=== PATIENT | female | born 1975 | race Caucasian/White ===

== ENCOUNTER 2017-06-12 09:46 | Observation (INO) | payer BC ==
[~2017-06-12] VITALS: Ht 170.2 cm; Wt 100.0 kg
[2017-06-12 09:48] VITALS: BP 159/77; PULSE 65; RESP 14; TEMP 98.4; O2SAT 100
[2017-06-12] MEDS ORDERED: SODIUM CHLOR 0.9% 1000 ML INJ 1,000 ML IV SCH (10:37)
--- NOTE | 2017-06-12 10:44 | PD ---
HPI Chief Complaint: Abdominal Pain Time Seen by Provider: 10:28 Travel History International Travel<30 days: No Contact w/Intl Traveler<30days: No Traveled to known affect area: No History of Present Illness HPI The patient is a 42-year-old female who presents emergency department for right upper quadrant abdominal pain with nausea and vomiting. The patient has symptoms for 2 days, does note the pain initially was epigastric, now is right upper quadrant, radiates to the right upper flank, is associated with nausea and vomiting. The pain improved, she ate seafood last night and the pain returned. She denies any diarrhea or lower abdominal pain. She does have a history of previous surgery for uterine fibroid, denies any history of choledocholithiasis, cholelithiasis, or symptomatic gallstones. She denies any dysuria, frequency, or urgency. She is currently on her menstrual cycle. She is visiting, from [place], for the [place] with family. PFS Past Medical History Narrative Medical Hyperlipidemia, nephrolithiasis High Cholesterol: Yes Genitourinary: Yes (kidney stone-lithrotripsy/stent ) Reproductive: Yes (fibroid surgery) ?: Not LMP: 06/10/17 Past Surgical History Narrative Surgical Fibroid surgery, previous kidney stent for kidney stone Social History Alcohol Use: No Tobacco Use: No Substance Use: No Allergies-Medications (Allergen,Severity, Reaction): Coded Allergies: Penicillins (Verified Adverse Reaction, Severe, 06/12/17) Reported Meds & Prescriptions Reported Meds & Active Scripts Active No Active Prescriptions or Reported Medications Review of Systems Except as stated in HPI: all other systems reviewed are Neg General / Constitutional: No: Fever Cardiovascular: No: Chest Pain or Discomfort Respiratory: No: Shortness of Breath Gastrointestinal: Positive: Nausea, Vomiting, Abdominal Pain, No: Diarrhea Genitourinary: Positive: Vaginal Bleeding (currently on her menstrual cycle), No: Dysuria, Hematuria Skin: No Rash Physical Exam Narrative GENERAL: Awake, alert, pleasant 42-year-old female who appears her stated age and is in no acute respiratory distress. SKIN: Focused skin assessment warm/dry. HEAD: Atraumatic. Normocephalic. EYES: No injection or drainage. ENT: No nasal bleeding or discharge. Mucous membranes pink and moist. NECK: Trachea midline. No JVD. CARDIOVASCULAR: Regular rate and rhythm. No murmur appreciated. RESPIRATORY: No accessory muscle use. Clear to auscultation. Breath sounds equal bilaterally. GASTROINTESTINAL: Abdomen soft, tenderness right upper quadrant. No guarding or rigidity. Back: No CVA tenderness. MUSCULOSKELETAL: No obvious deformities. No clubbing. No cyanosis. No edema. NEUROLOGICAL: Awake and alert. No obvious cranial nerve deficits. Motor grossly within normal limits. Normal speech. PSYCHIATRIC: Appropriate mood and affect; insight and judgment normal. Data Data Last Documented VS Vital Signs Date Time Temp Pulse Resp B/P (MAP) Pulse Ox O2 Delivery O2 Flow Rate FiO2 06/12/17 10:59 64 20 100 Room Air 06/12/17 09:48 98.4 Orders Orders Complete Blood Count With Diff (06/12/17 10:37) Comprehensive Metabolic Panel (06/12/17 10:37) Lipase (06/12/17 10:37) Urinalysis - C+S If Indicated (06/12/17 10:37) Us Abdomen Gallbladder (06/12/17 ) Iv Access Insert/Monitor (06/12/17 10:37) Ecg Monitoring (06/12/17 10:37) Oximetry (06/12/17 10:37) Morphine Inj (Morphine Inj) (06/12/17 10:45) Ondansetron Inj (Zofran Inj) (06/12/17 10:45) Sodium Chlor 0.9% 1000 Ml Inj (Ns 1000 M (06/12/17 10:37) Sodium Chloride 0.9% Flush (Ns Flush) (06/12/17 10:45) Ketorolac Inj (Toradol Inj) (06/12/17 10:45) Admit Order (Ed Use Only) (06/12/17 12:34) Ciprofloxacin 400 Mg Premix (Cipro 400 M (06/12/17 12:45) Metronidazole 500 Mg Inj (Flagyl 500 Mg (06/12/17 12:45) Ns + Kcl 20 Meq Inj (Ns + Kcl 20 Meq Inj (06/12/17 12:45) Labs Laboratory Tests Test 06/12/17 10:50 White Blood Count 16.5 TH/MM3 Red Blood Count 4.84 MIL/MM3 Hemoglobin 13.2 GM/DL Hematocrit 39.2 % Mean Corpuscular Volume 80.9 FL Mean Corpuscular Hemoglobin 27.2 PG Mean Corpuscular Hemoglobin Concent 33.6 % Red Cell Distribution Width 14.2 % Platelet Count 290 TH/MM3 Mean Platelet Volume 9.0 FL Neutrophils (%) (Auto) 89.9 % Lymphocytes (%) (Auto) 6.5 % Monocytes (%) (Auto) 3.2 % Eosinophils (%) (Auto) 0.0 % Basophils (%) (Auto) 0.4 % Neutrophils # (Auto) 14.8 TH/MM3 Lymphocytes # (Auto) 1.1 TH/MM3 Monocytes # (Auto) 0.5 TH/MM3 Eosinophils # (Auto) 0.0 TH/MM3 Basophils # (Auto) 0.1 TH/MM3 CBC Comment DIFF FINAL Differential Comment Urine Color YELLOW Urine Turbidity CLEAR Urine pH 6.5 Urine Specific [place] 1.030 Urine Protein TRACE mg/dL Urine Glucose (UA) NEG mg/dL Urine Ketones NEG mg/dL Urine Occult Blood NEG Urine Nitrite NEG Urine Bilirubin NEG Urine Urobilinogen LESS THAN 2.0 MG/DL Urine Leukocyte Esterase NEG Urine RBC LESS THAN 1 /hpf Urine WBC 1 /hpf Urine Squamous Epithelial Cells 1 /hpf Microscopic Urinalysis Comment CULT NOT INDICATED Blood Urea Nitrogen 9 MG/DL Creatinine 0.87 MG/DL Random Glucose 122 MG/DL Total Protein 7.9 GM/DL Albumin 3.6 GM/DL Calcium Level 8.8 MG/DL Alkaline Phosphatase 73 U/L Aspartate Amino Transf (AST/SGOT) 12 U/L Alanine Aminotransferase (ALT/SGPT) 17 U/L Total Bilirubin 0.3 MG/DL Sodium Level 132 MEQ/L Potassium Level 3.7 MEQ/L Chloride Level 100 MEQ/L Carbon Dioxide Level 22.0 MEQ/L Anion Gap 10 MEQ/L Estimat Glomerular Filtration Rate 71 ML/MIN Lipase 122 U/L [facility] Medical Decision Making Medical Screen Exam Complete: Yes Emergency Medical Condition: Yes Medical Record Reviewed: Yes Interpretation(s) Laboratory Tests Test 06/12/17 10:50 White Blood Count 16.5 TH/MM3 Red Blood Count 4.84 MIL/MM3 Hemoglobin 13.2 GM/DL Hematocrit 39.2 % Mean Corpuscular Volume 80.9 FL Mean Corpuscular Hemoglobin 27.2 PG Mean Corpuscular Hemoglobin Concent 33.6 % Red Cell Distribution Width 14.2 % Platelet Count 290 TH/MM3 Mean Platelet Volume 9.0 FL Neutrophils (%) (Auto) 89.9 % Lymphocytes (%) (Auto) 6.5 % Monocytes (%) (Auto) 3.2 % Eosinophils (%) (Auto) 0.0 % Basophils (%) (Auto) 0.4 % Neutrophils # (Auto) 14.8 TH/MM3 Lymphocytes # (Auto) 1.1 TH/MM3 Monocytes # (Auto) 0.5 TH/MM3 Eosinophils # (Auto) 0.0 TH/MM3 Basophils # (Auto) 0.1 TH/MM3 CBC Comment DIFF FINAL Differential Comment Urine Color YELLOW Urine Turbidity CLEAR Urine pH 6.5 Urine Specific [place] 1.030 Urine Protein TRACE mg/dL Urine Glucose (UA) NEG mg/dL Urine Ketones NEG mg/dL Urine Occult Blood NEG Urine Nitrite NEG Urine Bilirubin NEG Urine Urobilinogen LESS THAN 2.0 MG/DL Urine Leukocyte Esterase NEG Urine RBC LESS THAN 1 /hpf Urine WBC 1 /hpf Urine Squamous Epithelial Cells 1 /hpf Microscopic Urinalysis Comment CULT NOT INDICATED Blood Urea Nitrogen 9 MG/DL Creatinine 0.87 MG/DL Random Glucose 122 MG/DL Total Protein 7.9 GM/DL Albumin 3.6 GM/DL Calcium Level 8.8 MG/DL Alkaline Phosphatase 73 U/L Aspartate Amino Transf (AST/SGOT) 12 U/L Alanine Aminotransferase (ALT/SGPT) 17 U/L Total Bilirubin 0.3 MG/DL Sodium Level 132 MEQ/L Potassium Level 3.7 MEQ/L Chloride Level 100 MEQ/L Carbon Dioxide Level 22.0 MEQ/L Anion Gap 10 MEQ/L Estimat Glomerular Filtration Rate 71 ML/MIN Lipase 122 U/L Differential Diagnosis Differential diagnosis includes cholecystitis, choledocholithiasis, biliary colic, nephrolithiasis, hydronephrosis, peptic ulcer disease, pancreatitis, gastritis. Narrative Course IV was established, labs are drawn and sent, and the patient was placed on cardiac telemetry monitoring and continuous pulse oximetry monitoring. The patient was administered morphine, Toradol, Zofran, and IV fluids. Ultrasound of the right upper quadrant was ordered. White count is elevated, ultrasound is positive for large gallstone in the gallbladder neck with mild gallbladder wall thickening. I discussed the patient with the on-call surgeon, Dr. Wagner, who evaluated the patient in the emergency department. After evaluation, as agreed the patient would be a 23 hour observation to same-day care for cystectomy. The patient is comfortable with this plan of care. Physician Communication Physician Communication I discussed the patient with Dr. Wagner who agrees with 23 hour observation to same-day care. Diagnosis Primary Impression: Acute cholecystitis Admitting Information Admitting Physician Requests: Observation Scripts No Active Prescriptions or Reported Meds Condition: Stable Valdo Piper MD Jun 12, 2017 10:44
[2017-06-12] MEDS ORDERED: SODIUM CHLORIDE 0.9% FLUSH 10 ML FLUSH IV FLUSH PRN ×2 (10:45→15:30)
[2017-06-12] MEDS ORDERED: KETOROLAC TROMETHAMINE 30 MG/ML (IVP) VIAL IVP ONE (10:45)
[2017-06-12] MEDS ORDERED: MORPHINE SULFATE 4 MG/ML INJ IV PUSH ONE (10:45)
[2017-06-12] MEDS ORDERED: ONDANSETRON HCL 4 MG/2 ML VIAL IVP ONE (10:45)
[2017-06-12 10:59] VITALS: PULSE 64; RESP 20; O2SAT 100
[2017-06-12 11:06] LABS: AUTOMATED NEUTROPHIL # 14.8 TH/MM3 (1.8-7.7); BASOPHIL # 0.1 TH/MM3 (0-0.2); BASOPHIL % 0.4 % (0.0-2.0); HEMATOCRIT 39.2 % (35.0-46.0); HEMOGLOBIN 13.2 GM/DL (11.6-15.3); LYMPH % 6.5 % (9.0-44.0); LYMPHOCYTE # 1.1 TH/MM3 (1.0-4.8); MEAN CELL VOLUME 80.9 FL (80.0-100.0); MEAN CORPUSCULAR HEMOGLOBIN 27.2 PG (27.0-34.0); MEAN CORPUSCULAR HGB CONC 33.6 % (32.0-36.0); MONO % 3.2 % (0.0-8.0); MONOCYTE # 0.5 TH/MM3 (0-0.9); NEUT % 89.9 % (16.0-70.0); PLATELET COUNT 290 TH/MM3 (150-450); RED BLOOD COUNT 4.84 MIL/MM3 (4.00-5.30); RED CELL DISTRIBUTION WIDTH 14.2 % (11.6-17.2); WHITE BLOOD COUNT 16.5 TH/MM3 (4.0-11.0)
[2017-06-12 11:10] LABS: BILIRUBIN, URINE NEG (NEG); BLOOD, URINE NEG (NEG); GLUCOSE,URINE NEG (NEG); KETONE, URINE NEG (NEG); NITRITE,URINE NEG (NEG); PH, URINE 6.5 (5.0-8.5); SQUAMOUS EPITHELIAL CELL URINE 1 /hpf (0-5); URINE COLOR YELLOW (YELLW/STRAW); URINE LEUKOCYTE ESTERASE NEG (NEG)
[2017-06-12 11:20] LABS: ALBUMIN 3.6 GM/DL (3.4-5.0); AST (GOT) 12 U/L (15-37); BLOOD UREA NITROGEN 9 MG/DL (7-18); CALCIUM 8.8 MG/DL (8.5-10.1); CHLORIDE 100 MEQ/L (98-107); CREATININE 0.87 MG/DL (0.50-1.00); GLOMERULAR FILTRATION RATE 71 ML/MIN (>89); GLUCOSE,RANDOM 122 MG/DL (74-106); SODIUM (NA) 132 MEQ/L (136-145)
[2017-06-12 11:21] LABS: ALT (GPT) 17 U/L (10-53)
[2017-06-12 11:23] LABS: ALKALINE PHOSPHATASE 73 U/L (45-117); TOTAL BILIRUBIN ADULT 0.3 MG/DL (0.2-1.0); TOTAL PROTEIN 7.9 GM/DL (6.4-8.2)
--- NOTE | 2017-06-12 11:49 | RADRPT ---
EXAM DATE/TIME: 06/12/2017 11:14 [facility] COMPARISON: No previous studies available for comparison. INDICATIONS : Right upper quadrant pain. MEDICAL HISTORY : Hypercholesterolemia. Fibroids. Kidney stones. SURGICAL HISTORY : Fibroid surgery. Kidney stone- lithrotripsy with stent. ENCOUNTER: Initial ACUITY: 1 day PAIN SCORE: 8/10 LOCATION: Right upper quadrant MEASUREMENTS: LIVER: 17.9 cm length COMMON DUCT: 6 mm RIGHT KIDNEY: 10.8 x 4.6 x 5.1 cm FINDINGS: LIVER: Normal echotexture without focal lesion or ductal dilatation. COMMON DUCT: No intraluminal mass or stone visualized. GALLBLADDER: There is a solitary 2.4 cm nonmobile calcified gallstone in the gallbladder nec k. Gallbladder is mildly distended with subtle gallbladder wall thickening. No pericholecystic fluid or sonographic Munoz sign. PANCREAS: The visualized portions are within normal limits. RIGHT KIDNEY: No evidence of hydronephrosis, stone, or mass. CONCLUSION: 1. Solitary 2.4 cm nonmobile bile gallstone with slight gallbladder wall thickening. No definitive ul trasound findings to suggest acute cholecystitis. HIDA scan may be performed to document cystic duct patency if there is continued significant clinical concern. Surendra Block MD on June 12, 2017 at 11:43 Board Certified Radiologist. This report was verified electronically.
[2017-06-12] MEDS ORDERED: CIPROFLOXACIN 400 MG PREMIX 200 ML IV ONE (12:45)
[2017-06-12] MEDS ORDERED: metroNIDAZOLE 500 MG INJ 100 ML IV ONE (12:45)
[2017-06-12 13:24] VITALS: BP 134/77; PULSE 64; RESP 20; TEMP 98.3; O2SAT 100
[2017-06-12] MEDS: NS + KCL 20 MEQ INJ 1,000 ML IV SCH (13:43)
[2017-06-12 14:50] VITALS: PULSE 52
[2017-06-12] MEDS: metroNIDAZOLE 500 MG INJ 100 ML IV SCH (15:30)
[2017-06-12] MEDS: PANTOPRAZOLE SODIUM 40 MG VIAL IV PUSH SCH (15:30)
[2017-06-12] MEDS ORDERED: MORPHINE SULFATE 4 MG/ML INJ IV PUSH PRN (15:30)
[2017-06-12] MEDS: CIPROFLOXACIN 400 MG PREMIX 200 ML IV SCH (15:30)
[2017-06-12 15:49] VITALS: BP 139/77; PULSE 66; RESP 19; TEMP 97.8; O2SAT 99
[2017-06-12] MEDS: SODIUM CHLOR 0.9% 1000 ML INJ 1,000 ML IV SCH ×2 (17:36→23:23)
[2017-06-12] MEDS: oxyCODONE/ACETAMINOPHEN 5 MG/325 MG TAB PO PRN (19:05)
[2017-06-12 20:00] VITALS: BP 134/70; PULSE 74; RESP 18; TEMP 97.8; O2SAT 97
[2017-06-13] VITALS: BP 111/60; PULSE 69; RESP 18; TEMP 97.3; O2SAT 96
[2017-06-13] MEDS: metroNIDAZOLE 500 MG INJ 100 ML IV SCH ×4 (00:37→23:47)
[2017-06-13] MEDS: NS + KCL 20 MEQ INJ 1,000 ML IV SCH ×4 (00:37→19:43)
[2017-06-13] MEDS: SODIUM CHLORIDE 0.9% FLUSH 10 ML FLUSH IV FLUSH SCH ×3 (00:38→21:00)
[2017-06-13] MEDS ORDERED: LACTATED RINGER'S 1000 ML IV PRN (04:15)
[2017-06-13] MEDS ORDERED: CHLORHEXIDINE GLUCONATE 2 % 1 PACK (2 CLOTHS) TOPICAL PRN (04:15)
[2017-06-13] MEDS ORDERED: POVIDONE IODINE 5% (ANTISEPSIS KIT) 4 APPLICATIONS EACH NARE PRN (04:15)
[2017-06-13] MEDS: CIPROFLOXACIN 400 MG PREMIX 200 ML IV SCH ×2 (04:20→15:05)
[2017-06-13 08:00] VITALS: BP 132/85; PULSE 71; RESP 16; TEMP 97.5; O2SAT 98
[2017-06-13] MEDS: PANTOPRAZOLE SODIUM 40 MG VIAL IV PUSH SCH (08:24)
[2017-06-13] MEDS ORDERED: ACETAMINOPHEN 1000 MG/100 ML 100 ML IV PRN (09:15)
[2017-06-13] MEDS ORDERED: BUPIVACAINE/EPINEPHRINE 0.25% 50 ML VIAL ONE (09:30)
--- NOTE | 2017-06-13 11:46 | HHI.PR ---
Objective Vitals/I&O Vital Signs Date Time Temp Pulse Resp B/P (MAP) Pulse Ox O2 Delivery O2 Flow Rate FiO2 06/13/17 00:00 97.3 69 18 111/60 (77) 96 06/12/17 13:24 Room Air A/P Assessment and Plan Plan for lap carlos possible open npo consent on chart Lauro Wagner MD Jun 13, 2017 11:46
[2017-06-13] MEDS ORDERED: DEXAMETHASONE SOD PHOS 4 MG/ML VIAL IV ONE (12:00)
[2017-06-13] MEDS ORDERED: PROPOFOL 200 MG/20 ML AMP IV ONE (12:00)
[2017-06-13] MEDS ORDERED: GLYCOPYRROLATE 1 MG/5 ML SYRINGE IV PUSH ONE (12:00)
[2017-06-13] MEDS ORDERED: ONDANSETRON HCL 4 MG/2 ML VIAL IV ONE (12:00)
[2017-06-13] MEDS ORDERED: NEOSTIGMINE 5 MG/5 ML SYRINGE IV PUSH ONE (12:00)
[2017-06-13] MEDS ORDERED: LIDOCAINE HCL 1% PF 5 ML SYRINGE OTHER ONE (12:00)
[2017-06-13] MEDS ORDERED: ROCURONIUM INJ 50 MG/5 ML SYRINGE IV PUSH ONE (12:00)
[2017-06-13] MEDS ORDERED: KETOROLAC TROMETHAMINE 30 MG/ML (IVP) VIAL IV PUSH ONE (12:00)
--- NOTE | 2017-06-13 12:03 | HHI.PR ---
Immediate Post Op Note Procedure Date: Jun 13, 2017 Pre Op Diagnosis: acute cholecystitis with cholelithiasis Post Op Diagnosis: same Surgeon: Lauro Wagner MD Basket Braider(s): see or sheet Procedure: lap carlos Findings: large gallstones Complications: none Specimen(s) removed: gallbladder Anesthesia: General Drains: None Patient to: PACU Patient Condition: Good Lauro Wagner MD Jun 13, 2017 12:03
[2017-06-13] MEDS ORDERED: *morphine SULFATE 4 MG/ML PERIprocedure ONLY ONE (14:11)
--- NOTE | 2017-06-13 14:21 | MH ---
cc: RISHI BESS MD DATE OF ADMISSION: 06/12/2017 CHIEF COMPLAINT Abdominal pain. HISTORY OF PRESENT ILLNESS The patient is a 42-year-old female who presents with acute onset of right upper quadrant abdominal pain. She also had associated nausea, vomiting. The pain has been going on for approximately 2 days. It was initially epigastric and radiated to the right upper quadrant, continues to get worse, it is 7 out of 10, currently it is 5 out of 10, some improvement with IV pain medications, worse with movement, better with lying still. Patient has never had quite a history like this before. She has had a history of fibroids. She denies fevers or chills or change in bowel habits. PAST MEDICAL HISTORY 1. Hyperlipidemia. 2. Nephrolithiasis. 3. Hypercholesteremia. 4. Fibroids. PAST SURGICAL HISTORY Surgery for fibroids, kidney stone surgery. SOCIAL HISTORY Denies smoking, ETOH or IVDA. MEDICATIONS See EMR. ALLERGIES PENICILLIN. FAMILY HISTORY Denies diabetes or hypertension. REVIEW OF SYSTEMS GENERAL: Denies fevers, chills. HEENT: Denies eye pain, ear pain. NECK: Denies swelling or pain. LUNGS: Denies cough or wheeze. HEART: Generalized chest pain. No palpitations. ABDOMEN: Complains of nausea, vomiting, abdominal pain. : Denies dysuria, hematuria, positive vaginal bleeding on menstrual cycle. SKIN: Denies rashes or lesions. NEURO: Denies numbness or tingling. PSYCHE: Denies change in mood or sensorium. PHYSICAL EXAMINATION GENERAL: The patient is in no acute distress. VITAL SIGNS: Temperature 98.4, pulse 64, respirations 20, blood pressure 125/76, saturation 100%. HEENT: Pupils equal, round, reactive. Normocephalic, atraumatic. NECK: Supple. Trachea midline. LUNGS: Clear to auscultation, bilateral expansion. HEART: S1, S2, regular rhythm. ABDOMEN: Soft, positive tenderness to palpation right upper quadrant. No rebound or guarding. EXTREMITIES: Warm, well-perfused. NEUROLOGIC: 5/5 motor in all extremities. INTEGUMENT: No obvious masses or lesions. PSYCHE: Appropriate mood, appropriate judgment. LABORATORY DIAGNOSTIC DATA WBC 16.5, hemoglobin 13.2, hematocrit 39.2, platelets 290. Sodium 132, potassium 3.7, BUN 9, creatinine 0.8, calcium 8.8, AST 12, ALT 17, alkaline phos 73, lipase 122. Ultrasound reviewed by myself showing 2.4 cm gallstone in gallbladder neck, multiple small gallstones, minimal thickening of gallbladder. ASSESSMENT The patient is a 42-year-old female who presents with acute cholecystitis, symptomatic cholelithiasis. PLAN After full clinical workup the patient with above-named issues including acute cholecystitis and cholelithiasis. Discussed with the patient regarding operative intervention versus observation and antibiotics. The patient would elect to undergo operative intervention. Discussed with the patient in detail regarding surgery. Will place the patient on antibiotics, n.p.o., IV fluids, pain control. The patient states understanding and agrees and would like to proceed. MD MAYNOR Sanders/SHONDA /1:47 PM /2:07 PM
[2017-06-13] MEDS: oxyCODONE/ACETAMINOPHEN 5 MG/325 MG TAB PO PRN ×3 (15:44→23:47)
[2017-06-13 16:00] VITALS: BP 138/77; PULSE 60; RESP 18; TEMP 96.5; O2SAT 94
[2017-06-13] MEDS ORDERED: ONDANSETRON HCL 4 MG/2 ML VIAL IV PUSH PRN (16:00)
[2017-06-13 20:00] VITALS: BP 140/73; PULSE 71; RESP 18; TEMP 97.5; O2SAT 97
[2017-06-13 20:35] VITALS: O2SAT 97
[2017-06-13] MEDS ORDERED: DO NOT ADM ANY ANTICOAGULANT DRUGS PRN (22:00)
[2017-06-14] VITALS: BP 133/74; PULSE 65; RESP 18; TEMP 98.2; O2SAT 97
[2017-06-14] MEDS: oxyCODONE/ACETAMINOPHEN 5 MG/325 MG TAB PO PRN ×2 (03:53→07:45)
[2017-06-14] MEDS: CIPROFLOXACIN 400 MG PREMIX 200 ML IV SCH (03:53)
[2017-06-14] MEDS: SODIUM CHLORIDE 0.9% FLUSH 10 ML FLUSH IV FLUSH SCH (07:09)
[2017-06-14 07:18] LABS: BASOPHIL % 0.1 % (0.0-2.0); EOSINOPHIL % 0.2 % (0.0-4.0); HEMATOCRIT 32.3 % (35.0-46.0); HEMOGLOBIN 10.9 GM/DL (11.6-15.3); LYMPH % 10.8 % (9.0-44.0); LYMPHOCYTE # 1.8 TH/MM3 (1.0-4.8); MEAN CORPUSCULAR HEMOGLOBIN 27.8 PG (27.0-34.0); MEAN CORPUSCULAR HGB CONC 33.8 % (32.0-36.0); MEAN PLATELET VOLUME 9.3 FL (7.0-11.0); MONO % 9.2 % (0.0-8.0); MONOCYTE # 1.5 TH/MM3 (0-0.9); NEUT % 79.7 % (16.0-70.0); PLATELET COUNT 230 TH/MM3 (150-450); RED BLOOD COUNT 3.94 MIL/MM3 (4.00-5.30); RED CELL DISTRIBUTION WIDTH 14.1 % (11.6-17.2); WHITE BLOOD COUNT 16.4 TH/MM3 (4.0-11.0)
[2017-06-14 07:44] LABS: ALBUMIN 2.9 GM/DL (3.4-5.0); ALKALINE PHOSPHATASE 54 U/L (45-117); ALT (GPT) 27 U/L (10-53); AST (GOT) 26 U/L (15-37); BICARBONATE 23.3 MEQ/L (21.0-32.0); BLOOD UREA NITROGEN 8 MG/DL (7-18); CHLORIDE 109 MEQ/L (98-107); CREATININE 0.75 MG/DL (0.50-1.00); GLOMERULAR FILTRATION RATE 84 ML/MIN (>89); GLUCOSE,RANDOM 111 MG/DL (74-106); SODIUM (NA) 139 MEQ/L (136-145); TOTAL BILIRUBIN ADULT 0.3 MG/DL (0.2-1.0); TOTAL PROTEIN 6.3 GM/DL (6.4-8.2)
[2017-06-14] MEDS: metroNIDAZOLE 500 MG INJ 100 ML IV SCH (07:45)
[2017-06-14] MEDS: PANTOPRAZOLE SODIUM 40 MG VIAL IV PUSH SCH (07:45)
[2017-06-14] MEDS: NS + KCL 20 MEQ INJ 1,000 ML IV SCH (07:46)
[2017-06-14 08:00] VITALS: BP 133/79; PULSE 57; RESP 18; TEMP 96.1; O2SAT 97
--- NOTE | 2017-06-14 08:26 | HHI.PR ---
Subjective Subjective Notes no acute issues doing well, no nausea Objective Vitals/I&O Vital Signs Date Time Temp Pulse Resp B/P (MAP) Pulse Ox O2 Delivery O2 Flow Rate FiO2 06/14/17 08:00 96.1 57 18 133/79 (97) 97 06/13/17 20:35 21 06/13/17 14:15 Nasal Cannula 2 Labs Laboratory Tests Test 06/14/17 05:27 White Blood Count 16.4 Red Blood Count 3.94 Hemoglobin 10.9 Hematocrit 32.3 Mean Corpuscular Volume 82.0 Mean Corpuscular Hemoglobin 27.8 Mean Corpuscular Hemoglobin Concent 33.8 Red Cell Distribution Width 14.1 Platelet Count 230 Mean Platelet Volume 9.3 Neutrophils (%) (Auto) 79.7 Lymphocytes (%) (Auto) 10.8 Monocytes (%) (Auto) 9.2 Eosinophils (%) (Auto) 0.2 Basophils (%) (Auto) 0.1 Neutrophils # (Auto) 13.0 Lymphocytes # (Auto) 1.8 Monocytes # (Auto) 1.5 Eosinophils # (Auto) 0.0 Basophils # (Auto) 0.0 CBC Comment DIFF FINAL Differential Comment Blood Urea Nitrogen 8 Creatinine 0.75 Random Glucose 111 Total Protein 6.3 Albumin 2.9 Calcium Level 8.0 Alkaline Phosphatase 54 Aspartate Amino Transf (AST/SGOT) 26 Alanine Aminotransferase (ALT/SGPT) 27 Total Bilirubin 0.3 Sodium Level 139 Potassium Level 3.5 Chloride Level 109 Carbon Dioxide Level 23.3 Anion Gap 7 Estimat Glomerular Filtration Rate 84 Lipase 100 Cardiovascular: Regular Lungs: Clear Abdomen: Other (soft incisional tenderness) A/P Assessment and Plan POD 1 Lap carlos PLAN reg diet oob po pain control d/c home today after breakfast Lauro Wagner MD Jun 14, 2017 08:26
[2017-06-14] MEDS ORDERED: PERC5TAB12 PO (10:26)
--- NOTE | 2017-06-14 11:38 | MP ---
cc: RISHI WAGNER MD DATE OF SURGERY 06/13/2017 PREOPERATIVE DIAGNOSIS Symptomatic cholelithiasis, acute cholecystitis. POSTOPERATIVE DIAGNOSIS Symptomatic cholelithiasis, acute cholecystitis. Hydrops of gallbladder. PROCEDURE Laparoscopic cholecystectomy. SURGEON Dr. Rishi Wagner KEY BED INSTALLER See OR sheet. ANESTHESIA GETA. IV FLUIDS See Anesthesia sheet. ESTIMATED BLOOD LOSS 10 cc. DRAINS None. COMPLICATIONS None. WOUND CLASSIFICATION Clean/contaminated. SPECIMENS Gallbladder. FINDINGS Very distended gallbladder. Multiple tiny gallstones with one large gallstone and gallbladder hydrops. INDICATION The patient is a 42-year-old female who presented with acute onset of right upper quadrant abdominal pain. She had a leukocytosis of 16,000. Decision was made after evaluation of ultrasound showing gallstones and concern for acute cholecystitis and cholelithiasis for operative intervention. DETAILS OF PROCEDURE The patient was taken to the operating suite, placed in supine position and prepped and draped in the usual sterile fashion after induction of general endotracheal anesthesia. Brief time-out was done stating correct patient, procedure, surgical site. We were all in agreement with this. Attention was directed to the umbilicus where a small stab/arnie incision was made after injection of local anesthetic. The Visiport 5-mm port was introduced and entered into the abdomen safely. The abdomen was insufflated to 50 mmHg pneumoperitoneum. Cursory inspection noted no injury. Three other ports were placed including epigastric 12 mm, followed by two 5-mm right subcostal ports. The patient was placed in reverse Trendelenburg and airplaned to the left. The gallbladder fundus was grasped. It was noted be somewhat indurated and distended. Endo-needle was used to aspirate the gallbladder with clear fluid, indication of hydrops. The gallbladder was retracted cephalad and the cystic duct and cystic artery were dissected. Minimal adhesions around the cystic duct; these were dissected out. Suction irrigation used to assist in this process. Small exterior arterial branch of the cystic artery right against the gallbladder was noted, one clip placed distal and one proximal, hook used to transect this. The cystic duct and cystic artery then dissected out in the usual fashion and two clips placed proximal on both these structures, one distal, endoshears used to transect the cystic duct and the cyst artery. The gallbladder was removed from the gallbladder fossa with hook Bovie electrocautery. Hemostasis was obtained to the gallbladder fossa. The gallbladder placed in an EndoCatch bag and removed from the abdomen. Suction irrigation was again done, hemostasis obtained to the fossa. The pneumoperitoneum was removed, ports were removed. A 0 Vicryl suture was used for the fascia at the epigastric port. 4-0 Monocryl was used for subcuticular sutures. Sterile dressings to the skin were placed including Mastisol and Steri-Strips. The patient tolerated procedure well. There was no intraoperative complication. All lap and instrument counts were correct at the end of the procedure. The patient was extubated and taken stable to the PACU. MD MAYNOR Sanders/MATEO /1:53 PM /11:18 AM
== END 2017-06-14 11:33 | disposition home or self-care (01) ==
LOC: NEPD 09:46 → HSDC 12:47 → HSDI 15:27 → NEDA 17:35 → N07B 18:12
PROVIDERS: ADMIT Surgery; ATTEND Surgery
DX: K80.00 Calculus of gallbladder with acute cholecystitis without obstruction (principal); K82.1 Hydrops of gallbladder; E78.5 Hyperlipidemia, unspecified
CPT/HCPCS: 00790; 47562; 76705; 80053; 81001; 83690; 85025; 88304; 96361; 96365; 96366; 96367; 96368; 96375; 96376; 99285; C9113; G0378; J0131; J0744; J1100; J1885; J2270; J2405; J2710; J3010; J3480; J7030; J7120